=== PATIENT | male | born 1975 | race Caucasian/White ===

== ENCOUNTER 2018-06-02 10:32 | Outpatient (CLI) | payer BC, OTHER ==
--- NOTE | 2018-06-02 11:52 | RAD ---
LUMBAR SPINE FOUR VIEWS: HISTORY: Lumbar disk degeneration. Low back pain radiating down both legs. FINDINGS: Lateral neutral, lateral extension, lateral flexion, and AP of the lumbar spine demonstrates five lum bar type vertebral bodies. Vertebral body height is maintained. Disk space heights are preserved. No spondylolisthesis or spondylolysis. There is CT evidence of cholelithiasis in the right upper quadrant. IMPRESSION: 1. No malalignment in the neutral position. No abnormal motion upon extension or flexion. 2. Vertebral body height is maintained. No fracture. 3. Radiographic evidence of cholelithiasis. POS: [facility]
--- NOTE | 2018-06-02 12:28 | MRI ---
MRI LUMBAR SPINE WITHOUT CONTRAST: HISTORY: Lumbar disk degeneration. Low back pain radiating down both legs since 2001. COMPARISON: 11/14/2009 TECHNIQUE: An MRI of the lumbar spine is performed without intravenous Gadolinium administration. Multisequenti al, multiplanar imaging is performed. FINDINGS: Appropriate T1 marrow signal intensity of the lumbar vertebrae. Lumbar spine vertebral body height i s maintained. There is no fracture. No significant STIR hyperintensity to suggest vertebral body ed favian from fracture or ligamentous injury. There are type I and II modic changes involving the inferio r left aspect of L4 and the superior left aspect of S1. Symmetric signal intensity of the psoas muscles. Appropriate signal intensity of the visualized dilan d organs. The conus medullaris terminates at the mid L1 level. T12-L1: No significant central canal stenosis or neural foraminal narrowing. L1-L2: No significant central canal stenosis or foraminal narrowing. L2-L3: No significant central canal stenosis or neural foraminal narrowing. L3-L4: No significant central canal stenosis or foraminal narrowing. L4-L5: Adequate disk hydration. No significant central canal stenosis. The neural foramina are pat ent. L5-S1: There is slight progression of disk desiccation with slight increased loss of disk space heig ht. There is a central and right/left subarticular disk bulge. No significant stenosis of the theca l sac. Disk material abuts and minimally effaces the traversing right S1 nerve root. Disk material abuts but does not efface the traversing left S1 nerve root. There is a subtle T2 and STIR hyperinte nsity involving the posterior aspect of the disk, suggesting a small annular fissure. Mild right and mild to moderate left neural foraminal narrowing. IMPRESSION: 1. Type I-II modic changes involving the left aspect of the L5-S1 disk space. 2. Disk material encroaching upon both subarticular zones at L5-S1, with right slightly greater than left mass effect upon the traversing bilateral S1 nerve roots. 3. Bilateral neural foraminal narrowing at L5-S1, left greater than right. 4. Annular fissure at L5-S1. POS: [facility]
== END 2018-06-02 10:33 | disposition home or self-care (01) ==
LOC: TBSIIMAG 10:32
PROVIDERS: ATTEND Neurological Surgery
DX: M51.36 Other intervertebral disc degeneration, lumbar region (principal); K80.20 Calculus of gallbladder without cholecystitis without obstruction; M99.83 Other biomechanical lesions of lumbar region
CPT/HCPCS: 72110; 72148

== ENCOUNTER 2018-06-15 06:51 | Day surgery (SDC) | payer BC ==
[2018-06-10 10:33] VITALS: BMI 24.7
[2018-06-15] MEDS ORDERED: CEFAZOLIN 2 GM/50 ML BAG ONE (07:11)
[2018-06-15 07:30] LABS: #Basophils 0.1 thou/uL (0.0-0.2); #Eosinphils 0.2 thou/uL (0.0-0.7); #Lymphocytes 1.9 thou/uL (1.20-3.40); #Monocytes 0.7 thou/uL (0.11-0.59); #Neutrophils 4.2 thou/uL (1.40-6.50); %Basophils 0.8 % (0.0-1.0); %Eosinophils 2.4 % (0.0-10.0); %Lymphocytes 27.1 % (21.0-51.0); %Monocytes 9.4 % (0.0-10.0); %Neutrophils 60.3 % (42.0-75.0); Hemoglobin 16.8 g/dL (14.0-18.0); Mean Corpuscular Hemoglobin 30.8 pg (27.0-31.0); Mean Corpuscular Volume 93.2 fL (78.0-98.0); Mean Platelet Volume 6.9 fL (7.4-10.4); Platelet Count 268 thou/uL (130-400); RBC Distribution Width 11.4 % (11.5-14.5); Red Blood Cell (RBC) Count 5.45 mill/uL (4.70-6.10); White Blood Cell (WBC) Count 6.9 thou/uL (4.8-10.8)
[2018-06-15 07:53] LABS: Anion Gap 13 mmol/L (10-20); BUN (Urea Nitrogen) 13 mg/dL (8.9-20.6); Calc. Creatinine Clearance 110 mL/min (70-130); Calcium 9.9 mg/dL (7.8-10.44); Carbon Dioxide 28 mmol/L (22-29); Chloride 104 mmol/L (98-107); Estimated GFR-MDRD 89; Glucose 106 mg/dL (70-105); Potassium 4.5 mmol/L (3.5-5.1); Sodium 140 mmol/L (136-145)
[2018-06-15] MEDS ORDERED: Midazolam HCl 2 mg/2 ml Vial ONE (08:32)
[2018-06-15] MEDS ORDERED: Sodium Chloride 0.9% 10 ML ONE (09:26)
[2018-06-15] MEDS ORDERED: Fentanyl 100 MCG/2 ML VIAL ONE ×4 (09:35→11:41)
[2018-06-15] MEDS ORDERED: Ondansetron PF 4 MG/2 ML Vial ONE ×2 (11:07→13:23)
[2018-06-15] MEDS ORDERED: Promethazine HCl 25 MG/ML VIAL ONE (11:15)
--- NOTE | 2018-06-15 12:03 | OP ---
DATE OF PROCEDURE: 06/15/2018 SURGEON: Rhys Molina M.D. KNOCKDOWN MAN: Sangita Gonzalez PROCEDURE: Right L5-S1 laminectomy, facetectomy, foraminotomy, interbody arthrodesis, intravertebral biomechanical device, local morselized autograft, demineralized bone matrix, posterior lateral arthr odesis, and pedicle screw instrumentation, L5-S1. PROCEDURE IN DETAIL: The patient was brought into the operating room and intubated. He was rolled i n the prone position on gel-filled chest rolls. Incision made exposing L5 and S1 on the left and our level was confirmed by x-ray. We performed a complete right L5-S1 laminectomy, facetectomy, foramin otomy decompressing the neural elements at this level. The disc itself was incised and debrided and the bony endplates decorticated for the purpose of arthrodesis. An appropriately sized intravertebra l biomechanical PEEK device was brought into the field, filled with demineralized bone matrix, local morselized autograft, and tapped into place securely at L5-S1. Next, pedicle screws were placed at r ight L5 and right S1 using lateral fluoroscopic guidance and the positioning was confirmed by x-ray. Ben was then secured between the screws, connected by nuts which were final tightened. The wound wa s then extensively irrigated, immaculate hemostasis was secured. Combination of demineralized bone m atrix, local morselized autograft was laid over the left laminar and posterolateral surfaces for the purpose of arthrodesis. Vancomycin powder was applied and the wound was then closed in anatomic laye rs.
[2018-06-15] MEDS ORDERED: Dexamethasone 20 MG/5 ML VIAL ONE (13:23)
[2018-06-15] MEDS ORDERED: Ketorolac Tromethamine 30 MG/ML VIAL ONE (13:23)
[2018-06-15] MEDS ORDERED: PROPOFOL 200 MG/20 ML VIAL ONE (13:23)
[2018-06-15] MEDS ORDERED: Lidocaine 1% PF 5 ML VIAL ONE (13:23)
[2018-06-15] MEDS ORDERED: Glycopyrrolate 0.2 MG/ML 5 ML SYRINGE ONE (13:23)
[2018-06-15] MEDS ORDERED: HYDROcodone/Acetaminophen 5/325 mg Tablet ONE (13:33)
--- NOTE | 2018-06-15 19:21 | EKG ---
Test Reason : PREOP Blood Pressure : / mmHG Vent. Rate : 090 BPM Atrial Rate : 090 BPM P-R Int : 166 ms QRS Dur : 096 ms QT Int : 362 ms P-R-T Axes : 049 094 024 degrees QTc Int : 442 ms Normal sinus rhythm Rightward axis Borderline ECG No previous ECGs available Confirmed by ISAK TAYLOR, DR. Shrestha ([id number]) on 06/15/2018 7:21:09 PM Referred By: CASEY Confirmed By:DR. Fady PARISI MD
== END 2018-06-15 13:50 | disposition home or self-care (01) ==
LOC: SDC 06:51
PROVIDERS: ATTEND Neurological Surgery
PROC: 0SG0071 Fusion of Lumbar Vertebral Joint with Autologous Tissue Substitute, Posterior Approach, Posterior Column, Open Approach (ICD-10-PCS; principal; 2018-06-15)
PROC: 0SG00AJ Fusion of Lumbar Vertebral Joint with Interbody Fusion Device, Posterior Approach, Anterior Column, Open Approach (ICD-10-PCS; principal; 2018-06-15)
DX: M51.16 Intervertebral disc disorders with radiculopathy, lumbar region (principal)
CPT/HCPCS: 36415; 76001; 80048; 85025; 93005; 93010; 96374; 96375; C1713; C1768; J0131; J1100; J1885; J2001; J2250; J2405; J2550; J2704; J3010; J3370; J3490